=== PATIENT | female | born 1945 | race Caucasian/White ===

== ENCOUNTER → 2025-01-10 | Day surgery (SDC) | payer MEDICARE ==
[~2025-01-10] MED LIST: Propofol 200 MG/20 ML SDV IV ONE; Sodium Chloride 0.9% 10 ML Syringe FLUSH PRN
[2025-01-10] MEDS: Lactated Ringers 1,000 ML IV SCH (08:32)
== END | disposition home or self-care (01) ==
LOC: FB.SDS 07:55
PROVIDERS: ATTEND Surgery
DX: Z12.11 Encounter for screening for malignant neoplasm of colon (principal); D12.6 Benign neoplasm of colon, unspecified; I10 Essential (primary) hypertension; K57.30 Diverticulosis of large intestine without perforation or abscess without bleeding; Z88.2 Allergy status to sulfonamides; Z79.84 Long term (current) use of oral hypoglycemic drugs; Z79.899 Other long term (current) drug therapy
CPT/HCPCS: 00811; 45385; 82947; 88305; 99100; A9270; J2704; J7120